=== PATIENT | male | born 1970 | race Caucasian/White ===

== ENCOUNTER 2018-11-03 17:30 | Emergency (ER) | payer OTHER ==
[~2018-11-03] VITALS: Ht 165.1 cm; Wt 103.0 kg
[2018-11-03 17:46] VITALS: Ht 165.1 cm; Wt 103.0 kg
[2018-11-03 20:40] VITALS: BP 152/99
== END 2018-11-03 20:40 | disposition home or self-care (01) ==
LOC: ED 17:30
DX: M54.42 Lumbago with sciatica, left side (principal)
CPT/HCPCS: 82962; J1100; J1885

== ENCOUNTER 2018-11-10 05:02 | Emergency (ER) | payer OTHER ==
[~2018-11-10] VITALS: Ht 165.1 cm; Wt 100.7 kg
[2018-11-10 05:09] VITALS: Ht 165.1 cm; Wt 100.7 kg
[2018-11-10 07:36] VITALS: BP 146/87
== END 2018-11-10 07:36 | disposition home or self-care (01) ==
LOC: ED 05:02
DX: M54.42 Lumbago with sciatica, left side (principal)
CPT/HCPCS: J1885